=== PATIENT | female | born 1970 | race Caucasian/White ===

== ENCOUNTER 2021-02-23 10:46 | Outpatient (CLI) | payer BC | END 2021-02-23 10:47 | disposition home or self-care (01) | LOC: BICMAMMO 10:46 | PROVIDERS: ATTEND Obstetrics & Gynecology | DX: Z12.31 Encounter for screening mammogram for malignant neoplasm of breast (principal); Z91.89 Other specified personal risk factors, not elsewhere classified | CPT/HCPCS: 77063; 77067 ==

== ENCOUNTER 2023-02-05 11:32 | Outpatient (CLI) | payer BC | END 2023-02-05 11:33 | disposition home or self-care (01) | LOC: BICMAMMO 11:32 | PROVIDERS: ATTEND Registered Nurse | DX: Z12.31 Encounter for screening mammogram for malignant neoplasm of breast (principal); N63.11 Unspecified lump in the right breast, upper outer quadrant; N63.10 Unspecified lump in the right breast, unspecified quadrant | CPT/HCPCS: 77063; 77067 ==

== ENCOUNTER 2023-02-07 08:31 | Outpatient (CLI) | payer BC | END 2023-02-07 08:32 | disposition home or self-care (01) | LOC: BICULT 08:31 | PROVIDERS: ATTEND Registered Nurse | DX: N63.15 Unspecified lump in the right breast, overlapping quadrants (principal) ==

== ENCOUNTER 2023-08-23 15:49 | Outpatient (CLI) | payer BC | END 2023-08-23 15:50 | disposition home or self-care (01) | LOC: BICULT 15:49 → ULT 15:50 | PROVIDERS: ATTEND Registered Nurse | DX: M54.2 Cervicalgia (principal) | CPT/HCPCS: 76536; 93880 ==

== ENCOUNTER 2023-08-26 14:21 | Outpatient (CLI) | payer BC | END 2023-08-26 14:22 | disposition home or self-care (01) | LOC: BICMAMMO 14:21 | PROVIDERS: ATTEND Registered Nurse | DX: N63.11 Unspecified lump in the right breast, upper outer quadrant (principal) | CPT/HCPCS: G0279 ==

== ENCOUNTER 2024-03-13 14:32 | Outpatient (CLI) | payer BC | END 2024-03-13 14:33 | disposition home or self-care (01) | LOC: BICMAMMO 14:32 | PROVIDERS: ATTEND Registered Nurse | DX: N63.11 Unspecified lump in the right breast, upper outer quadrant (principal); N60.01 Solitary cyst of right breast | CPT/HCPCS: 77066; G0279 ==